=== PATIENT | female | born 1990 | race Caucasian/White ===

== ENCOUNTER 2017-06-04 22:24 | Emergency (ER) | payer SELFPAY ==
--- NOTE | 2017-06-04 22:40 | EDPHY ---
H & P Time Seen by Provider: 06/04/17 22:27 HPI/ROS: Chief Complaint: Knee pain HPI: 26-year-old woman with a history of a prior patellar dislocation she was 14 was walking yesterday and felt a pull in her left knee. Patient felt that her kneecap may have moved out of place. Since that time she has had some discomfort along the lateral aspect of her knee cap. She has been able to weight bear without any difficulties. She has not been taking any medications for this. No numbness or weakness. No falls. No other injuries. ROS: 10 point Review of Systems is negative except as noted in the HPI. Family History: [non-contributory] Physical Exam: General: Awake, alert, no acute distress Lower extremity: Left knee store some minimal tenderness to the lateral aspect of the patella. There is no patellar tenderness. She has no proximal tibial tenderness. No medial or lateral collateral ligament tenderness. She is able to flex past 90. No anterior drawer sign. No pain with loading of the medial lateral meniscus. Knee is not swollen. There is no erythema. Distally she has normal perfusion. Sensations intact. She is able to weight bear in the emergency department. Skin: No rash Medical Decision Making ED Course/Re-evaluation: 26-year-old with knee sprain. She has no focal bony tenderness. She has not have a mechanism that would suggest fracture. We have discussed the advantages and disadvantages of x-ray at this time. She agrees with plan to discharge to home with follow-up with primary care as an outpatient. She has continued to have pain she can have an x-ray next week. She will otherwise return for worsening pain. She has been given an Nicola wrap and crutches. Will apply ice. Will be taking Tylenol Motrin as needed for pain. Departure - Departure Disposition: Home, Routine, Self-Care Clinical Impression: Knee sprain Condition: Good Instructions: Knee Sprain (ED), Crutch Instructions (ED), R.I.C.E. Treatment ( ED) Additional Instructions: Alternate acetaminophen (1000 mg) with ibuprofen (400 mg) every 4 hours as needed for pain. You may weight bear as tolerated. Follow up with primary care physician in 4-5 days for further evaluation. Referrals: Mohini Gilliam DO [Doctor of Osteopathy] - As per Instructions
[2017-06-04 22:48] VITALS: BP 131/93; PULSE 93; RESP 16; TEMP 98.4; O2SAT 97
== END 2017-06-04 22:50 | disposition home or self-care (01) ==
LOC: CED 22:24
DX: S83.92XA Sprain of unspecified site of left knee, initial encounter (principal); X58.XXXA Exposure to other specified factors, initial encounter; Y99.8 Other external cause status; Y93.01 Activity, walking, marching and hiking